=== PATIENT | female | born 1930 | race Caucasian/White ===

== ENCOUNTER 2017-09-17 08:55 | Day surgery (SDC) | payer MEDICARE, BC ==
[~2017-09-17] VITALS: Ht 160 cm; Wt 67.1 kg
[~2017-09-17 08:55] MED LIST: AMLODIPINE BESYL5 MG PO; ASPIR-LOW81 MG PO; LEVOTHYROXINE25 MCG PO; METOPROLOL SUCC50 MG PO; VITAMIN B COMP1 EACH PO; VITAMIN C500 M4 PO
--- NOTE | 2017-09-17 11:21 | NUR ---
09/17/17 1121 Tammi Alexis 1106 PT ARRIVED IN PACU SLEEPY WITH NO C/O'S. DR AT BEDSIDE.
--- NOTE | 2017-09-17 11:50 | NUR ---
1145: PATIENT BACK IN DAY SURGERY ROOM FROM PACU. DENIES PAIN. NO DRAINAGE SEEN. VS CHECKED. IV SITE WNL. SCDs ON. CALL LIGHT WITHIN REACH. SON AT BEDSIDE. GIVEN ICE WATER AND JELLO.
--- NOTE | 2017-11-12 14:15 | OR ---
[facility] [address], [place] [address] Signed DATE OF OPERATION: 09/17/2017 SURGEON: Rosendo Fry MD PREOPERATIVE DIAGNOSIS: Right mandibular lesion. POSTOPERATIVE DIAGNOSES: 1. Right mandibular lesion. 2. Right retromolar trigone lesion. ANESTHESIA: General orotracheal, NETWORK LEAD, Wesly. PROCEDURE: Biopsy of oral lesions. PREOPERATIVE HISTORY: Ms. 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 She had postop radiation. She has a nonhealing sore on the right mandible alveolar ridge for several months. This has been open with exposed bone, unresponsive to conservative therapy and she is being taken to the operating room for biopsy and closure of this lesion. OPERATIVE PROCEDURE AND FINDINGS: After informed consent, the patient was taken to the operating room and placed in the supine position, where general orotracheal anesthesia was induced. The patient and procedure were verified. Headlight exam of the pharynx showed lesion of the right mandible alveolar ridge, just medial on the lingual surface, measured about 4 or 5 mm x 1 cm. There was granular tissue in this area. 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 Also, the buccal mucosa had scar tissue on the right at the previous excision site well healed without evidence of recurrent tumor. The retromolar trigone lesion was excised with Ximena and sent to pathology in formalin. The right mandible lesion was also biopsied with Ximena. Cautery was used for hemostasis in both biopsies. There was no exposed bone anteriorly, just granular tissue. Minimal bleeding stopped afterwards. The patient was then awakened, extubated, and transported to recovery room in good condition. COMPLICATIONS: No complications. Electronically Signed By: ROSENDO FRY MD 11/12/17 1415 PATIENT NAME: MOR REYES OPERATIVE REPORT DATE OF : 30 REPORT #: [id number] PHYSICIAN: ROSENDO FRY MD PCP: BRIAN SHIN DO REPORT IS CONFIDENTIAL AND NOT TO BE RELEASED WITHOUT AUTHORIZATION [facility] [address], [place] [address] Signed BLOOD LOSS: Minimal. SPECIMEN: To pathology. 1. Right retromolar trigone. 2. Right anterior mandible sent separately in formalin for permanent sections. DRAINS: No drains. Rosendo Fry MD GC/MODL /[id number] Electronically Signed By: ROSENDO FRY MD 11/12/17 1415 PATIENT NAME: MOR REYES JANUARY OPERATIVE REPORT DATE OF : 30 REPORT #: [id number] PHYSICIAN: ROSENDO FRY MD PCP: BRIAN SHIN DO REPORT IS CONFIDENTIAL AND NOT TO BE RELEASED WITHOUT AUTHORIZATION
== END 2017-09-17 13:02 | disposition home or self-care (01) ==
LOC: DS 08:55 → OPS 08:55 → DS 11:15 → OPS 11:15
PROVIDERS: Otolaryngology
PROC: 0HB1XZZ Excision of Face Skin, External Approach (ICD-10-PCS; 2017-09-17)
PROC: 0NBT0ZX Excision of Right Mandible, Open Approach, Diagnostic (ICD-10-PCS; principal; 2017-09-17 11:15)
DX: K12.1 Other forms of stomatitis (principal); M27.2 Inflammatory conditions of jaws; I10 Essential (primary) hypertension; M19.90 Unspecified osteoarthritis, unspecified site; E78.00 Pure hypercholesterolemia, unspecified; M85.80 Other specified disorders of bone density and structure, unspecified site; E03.9 Hypothyroidism, unspecified; Z88.8 Allergy status to other drugs, medicaments and biological substances; Z87.891 Personal history of nicotine dependence; Z98.890 Other specified postprocedural states
CPT/HCPCS: 00300; 88305; 88341; 88342; J0330; J2405; J2704; J3010; J7120

== ENCOUNTER 2017-12-29 23:54 | Emergency (ER) | payer MEDICARE, BC ==
[~2017-12-29] VITALS: Ht 160 cm; Wt 67.1 kg
--- OUTSIDE RECORDS SUMMARY | ~2017-12-29 | XMS | Clinical Summary ---
Demographics + + + | Address | [address] | | | [place] [address] | + + + | Home Phone | | + + + | Preferred Language | Unknown | + + + | Marital Status | Single | + + + | Worship Affiliation | CAT | + + + | Race | White | + + + | Ethnic Group | Not or | + + + Author + + + | Author | NON REVENUE LOCATIONS | + + + | Organization | NON REVENUE LOCATIONS | + + + | Address | Unknown | + + + | Phone | Unavailable | + + + Support + + +---------+ + | Name | Relationship | Address | Phone | + + +---------+ + | KATHY REYES | ECON | Unknown | | + + +---------+ + Care Team Providers + +------+ + | Care Technical Training Manager Name | Role | Phone | + +------+ + | Daniel Pedro DO | PP | | + +------+ + Source Comments VJ is fully live on both [facility] Ambulatory and [facility] InPatient.[facility] Allergies No Known Allergies Current Medications + + + +---------+------+------+-------+ | Prescription | Sig. | Disp. | Refills | Star | End | Statu | | | | | | t | Date | s | | | | | | Date | | | + + + +---------+------+------+-------+ | levothyroxine 25 | take 1 tablet by | | 1 | 05/3 | | Activ | | mcg oral tablet | mouth every morning | | | 0/20 | | e | | | ON AN EMPTY STOMACH | | | 17 | | | + + + +---------+------+------+-------+ | cyclobenzaprine 5 | | | 0 | 06/2 | | Activ | | mg oral tablet | | | | 1/20 | | e | | | | | | 17 | | | + + + +---------+------+------+-------+ | metoprolol | | | 1 | 05/2 | | Activ | | succinate 50 mg oral | | | | 20 | | e | | tablet extended | | | | 17 | | | | release 24 hr | | | | | | | + + + +---------+------+------+-------+ | lisinopril 20 mg | | | 1 | 06/0 | | Activ | | oral tablet | | | | 3/20 | | e | | | | | | 17 | | | + + + +---------+------+------+-------+ | omeprazole 20 mg | | | 0 | 06/2 | | Activ | | oral capsule,delayed | | | | 1/20 | | e | | release(DR/EC) | | | | 17 | | | + + + +---------+------+------+-------+ | clotrimazole 10 mg | | | 1 | 06/ | | Activ | | mucous membrane | | | | 3/20 | | e | | mamadou | | | | 17 | | | + + + +---------+------+------+-------+ | aspirin EC 81 mg | Take 81 mg by mouth | | | | | Activ | | oral tablet,delayed | once daily. | | | | | e | | release (DR/EC) | | | | | | | + + + +---------+------+------+-------+ | CALCIUM PHOSPHATE | Take by mouth. | | | | | Activ | | DIBAS/VIT D3 | | | | | | e | | (VITAMIN D (WITH | | | | | | | | CALCIUM) OR) | | | | | | | + + + +---------+------+------+-------+ | | Take 1 tablet by | 7 | 0 | 07/ | | Activ | | HYDROcodone-acetamin | mouth every four | tablet | | 2/20 | | e | | ophen 5-325 mg oral | hours as needed for | | | 17 | | | | tabletIndications: | severe pain for up | | | | | | | Pain | to 7 doses. | | | | | | | | Indications: Pain | | | | | | + + + +---------+------+------+-------+ | acetaminophen 160 | Take 10.16-20.31 mL | 240 mL | 0 | 07/1 | | Activ | | mg/5 mL oral | by mouth every four | | | 2/20 | | e | | liquidIndications: | hours as needed for | | | 17 | | | | Fever, Pain | moderate pain. | | | | | | | | Indications: Fever, | | | | | | | | Pain | | | | | | + + + +---------+------+------+-------+ | amLODIPine 5 mg | Take 5 mg by mouth | | | | | Activ | | oral tablet | once daily. 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 | + + + | Esophageal dysmotility | 02/27/2017 | + + + Family History + + +------+ + | Medical History | Relation | Name | Comments | + + +------+ + | None | Father | | | + + +------+ + | None | Mother | | | + + +------+ + + +------+--------+ + | Relation | Name | Status | Comments | + +------+--------+ + | Father | | | | + +------+--------+ + | Mother | | | | + +------+--------+ + Social History + + + +--------+ + | Tobacco Use | Types | Packs/Day | Years | Date | | | | | Used | | + + + +--------+ + | Former Smoker | Cigarettes | 2 | 29 | Quit: 09/02/1986 | + + + +--------+ + + + +---------+ + | Alcohol Use | Drinks/We | oz/Week | Comments | | | ek | | | + + +---------+ + | Yes | 7 | 4.2 | | | | Standard | | | | | drinks or | | | | | | | | | | equivalen | | | | | t | | | + + +---------+ + + + + | Sex Assigned at | Date Recorded | | | | + + + | Not on file | | + + + Last Filed Vital Signs + + + + | Vital Sign | Reading | Time Taken | + + + + | Blood Pressure | 126/60 | 03/13/2017 12:28 PM PDT | + + + + | Pulse | 67 | 03/13/2017 12:28 PM PDT | + + + + | Temperature | 36.3 C (97.3 F) | 03/13/2017 12:28 PM PDT | + + + + | Respiratory Rate | 20 | 03/13/2017 12:28 PM PDT | + + + + | Oxygen Saturation | 98% | 03/13/2017 12:28 PM PDT | + + + + | Inhaled Oxygen | - | - | | Concentration | | | + + + + | Weight | 65.8 kg (145 lb) | 04/10/2017 2:45 PM PDT | + + + + | Height | 160 cm (5' 3") | 04/10/2017 2:45 PM PDT | + + + + | Body Mass Index | 25.69 | 04/10/2017 2:45 PM PDT | + + + + Plan of Treatment + + + + + | Health Maintenance | Due Date | Last Done | Comments | + + + + + | INFLUENZA VACCINE | | 07/26/2009 | | | (FLU SHOT) | 8 | | | + + + + + Results Not on filefrom Last 3 Months
--- OUTSIDE RECORDS SUMMARY | ~2017-12-29 | XMS | Clinical Summary ---
Demographics + + + | [address] | [address] | | | [place] [address] | + + + | Home Phone | | + + + | Preferred Language | Unknown | + + + | Marital Status | Single | + + + | Pentecostal Affiliation | CAT | + + + [...] Team Providers + +------+ + | Care Artificial Flowers Starcher Name | Role | Phone | + +------+ + | Daniel Pedro DO | PP | | + +------+ + Source Comments VJ is fully live on both [facility] Ambulatory and [facility] InPatient.[facility] Allergies No Known Allergies Current Medications + [...]
--- OUTSIDE RECORDS SUMMARY | ~2017-12-29 | XMS | Clinical Summary ---
Demographics + + + | Address | [address] | | | [place] [address] | + + + | Home Phone | | + + + | Preferred Language | Unknown | + + + | Marital Status | Unknown | + + + | Anglican Affiliation | Unknown | + + + | Race | Unknown | + + + | Ethnic Group | Unknown | + + + Author + + + | Author | [facility] | | | and [place] | + + + | Organization | [facility] | | | and [place] | + + + | Address | Unknown | + + + | Phone | Unavailable | + + + Care Team Providers + +------+ + | Care Seafood Fisherman Name | Role | Phone | + +------+ + | Pedro Sanchez DO | PP | | + +------+ + Allergies Not on File Current Medications Not on file Active Problems Not on file Social History + +-------+ +--------+------+ | Tobacco Use | Types | Packs/Day | Years | Date | | | | | Used | | + +-------+ +--------+------+ | Never Assessed | | | | | + +-------+ +--------+------+ + + + | Sex Assigned at | Date Recorded | | | | + + + | Not on file | | + + + Plan of Treatment + + + + + | Health Maintenance | Due Date | Last Done | Comments | + + + + + | Vaccine: | | | | | Dtap/Tdap/Td (1 - | 0 | | | | Tdap) | | | | + + + + + | Vaccine: | | | | | Pneumococcal 65+ | 6 | | | | Low/Medium Risk (1 | | | | | of 2 - PCV13) | | | | + + + + + | Vaccine: Influenza | | | | | (Season Ended) | 8 | | | + + + + + Results Not on filefrom Last 3 Months Insurance + +--------+ +--------+ +---------+ | Payer | Benefi | Subscriber | Type | Phone | Address | | | t Plan | ID | | | | | | / | | | | | | | Group | | | | | + +--------+ +--------+ +---------+ | MEDICARE | MEDICA | xxxxxxxxxx | Medica | [phone] | | | RE | | re | [phone] | | | | PART A | | | | | | | AND B | | | | | + +--------+ +--------+ +---------+ | BCBS | BCBS | [phone] | PPO | | | | | OUT OF | x | | | | | | STATE | | | | | | | PPO | | | | | + +--------+ +--------+ +---------+ + +--------+ +--------+ + + | Guarantor Name | Accoun | Relation to | Date | Phone | Billing Address | | | t Type | Patient | of | | | | | | | | | | + +--------+ +--------+ + + | MOR REYES | Person | Self [birth year] Home: | [address] | | | al/Fam | | 1931 | [phone] | [place] [address] | | | josé miguel | | | [phone] | | + +--------+ +--------+ + +"
--- OUTSIDE RECORDS SUMMARY | ~2017-12-29 | XMS | Clinical Summary ---
Demographics + + + | Address | [address] | | | [place] [address] | + + + | Home Phone | | + + + | Preferred Language | Unknown | + + + | Marital Status | Unknown | + + + | Gnosticist Affiliation | Unknown | + + + | Race | Unknown | + + + | Ethnic Group | Unknown | + + + Author + + + | Author | [facility] | | | and [place] | + + + | Organization | [facility] | | | and [place] | + + + | Address | Unknown | + + + | Phone | Unavailable | + + + Care Team Providers + +------+ + | Care Financial Retirement Plan Specialist Name | Role | Phone | + [...] 1931 | [phone] | [place] [address] | | | josé miguel | | | [phone] | | + +--------+ +--------+ + +"
== END 2017-12-30 04:00 | disposition home or self-care (01) ==
LOC: ED 23:54
DX: R10.84 Generalized abdominal pain (principal); R19.7 Diarrhea, unspecified; Z87.891 Personal history of nicotine dependence; Z79.82 Long term (current) use of aspirin; Z79.899 Other long term (current) drug therapy
CPT/HCPCS: 80053; 81001; 83690; 85025; 96360; 99283; J7040

== ENCOUNTER 2018-02-05 00:32 | Emergency (ER) | payer MEDICARE, BC ==
[~2018-02-05] VITALS: Ht 160 cm; Wt 63.5 kg
[2018-02-05] MEDS ORDERED: CEPHALEXIN500 MG PO (00:43)
[2018-02-05] MEDS ORDERED: NORCO 5-325 TA1 EACH PO (00:44)
[2018-02-05] MEDS ORDERED: PERCOCET 5-3251 EACH PO (01:30)
== END 2018-02-05 02:06 | disposition home or self-care (01) ==
LOC: ED 00:32
DX: K11.20 Sialoadenitis, unspecified (principal); I10 Essential (primary) hypertension; E03.9 Hypothyroidism, unspecified; Z87.891 Personal history of nicotine dependence; Z79.899 Other long term (current) drug therapy; Z79.2 Long term (current) use of antibiotics; Z79.82 Long term (current) use of aspirin
CPT/HCPCS: 96372; 99283; J2270

== ENCOUNTER 2020-08-13 10:01 | Emergency (ER) | payer MEDICARE, BC ==
[~2020-08-13] VITALS: Ht 160 cm; Wt 68.0 kg
[~2020-08-13 10:01] MED LIST changes: +CEFDINIR300 MG PO; +CEPHALEXIN500 MG PO; +KEFLEX500 MG PO; +NORCO 5-325 TA1 EACH PO; +PERCOCET 5-3251 EACH PO; +PYRIDIUM200 MG PO
--- OUTSIDE RECORDS SUMMARY | 2020-08-13 10:04 | XMS ---
PreManage Notification: MOR REYES Security Booth Cleaner Events No recent Security Events currently on file CRITERIA MET - [facility] - Has Care Guidelines CARE PROVIDERS BRIAN SHIN Internal Medicine 04/07/2019-Current PHONE: [phone] MARIBEL ANDRADE Internal Medicine 04/06/2019-Current PHONE: [phone] Dennys has no Care Guidelines for this patient. Care History Medical/Surgical 04/07/[address] [facility] - [facility]W RECEIVED-ED CASE MANAGEMENT CONSULT- - [facility]W CONTACTED PATIENT. PATIENT IS CURRENTLY WAITING ON A [facility] [employer] REFERRAL - SHE HAS CONTACTED DR ANDRADE (PCP) IT IS CURRENTLY WAITING FOR APPROVAL FROM DR ANDRADE. 04/06/[address] [facility] - Patient is currently established with [facility]. If patient is seen in the ED during business hours. Please contact CHWs at [facility]. Care Recommendation: This patient has had 5 or more Emergency Department visits in the last 12 months.\T\nbsp; Patient requires education on the scope and purpose of the ED as an acute care provider not a Primary Care Provider and should not be utilized for chronic conditions.\T\nbsp; These are guidelines and the provider should exercise clinical judgment when providing care. Michael VISIT COUNT (12 MO.) 1 ZAKI Carney TOTAL 1 NOTE: Visits indicate total known visits. ED/UCC VISIT TRACKING (12 MO.) 08/13/2020 10:02 ZAKI Coley OR TYPE: Emergency COMPLAINT: - VOMITING, DIZZYNESS INPATIENT VISIT TRACKING (12 MO.) No inpatient visits to display in this time frame [email or web address]
[2020-08-13] MEDS ORDERED: ONDANSETRON ODT4 MG PO (12:31)
--- NOTE | 2020-08-13 12:41 | EKG ---
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) Left axis deviation Moderate voltage criteria for LVH, may be normal variant Nonspecific T wave abnormality Abnormal ECG When compared with ECG of 02-APR-2019 23:21, Sinus rhythm is now with 2nd degree AV block (Mobitz I) Nonspecific T wave abnormality now evident in Inferior leads T wave amplitude has decreased in Lateral leads Confirmed by REGINA DESAI DO ([id number]) on 08/13/2020 12:41:00 PM Electronically Signed By: REGINA DESAI DO 08/13/20 1241 PATIENT NAME: MOR REYES JANUARY Electrocardiogram DATE OF : 30 PHYSICIAN: REGINA DESAI DO REPORT #: [id number] REPORT IS CONFIDENTIAL AND NOT TO BE RELEASED WITHOUT AUTHORIZATION
== END 2020-08-13 13:07 | disposition home or self-care (01) ==
LOC: ED 10:01
DX: T40.491A Poisoning by other synthetic narcotics, accidental (unintentional), initial encounter (principal); I44.1 Atrioventricular block, second degree; I10 Essential (primary) hypertension; E03.9 Hypothyroidism, unspecified; Z79.899 Other long term (current) drug therapy; Z79.82 Long term (current) use of aspirin
CPT/HCPCS: 80053; 84484; 85025; 93005; 93010; 96374; 96376; 99284-25; J2405; J7030